=== PATIENT | female | born 1950 ===

== ENCOUNTER 2017-08-02 12:17 | Inpatient (IN) | payer OTHER ==
[2017-07-30 12:43] VITALS: BMI 23.8
[2017-08-02] MEDS ORDERED: Midazolam 2 MG/2 ML VIAL ONE ×3 (13:54→15:47)
[2017-08-02] MEDS ORDERED: Nitroglycerin 50mg in D5W 0 MG/0 ML BOTTLE IV ONE (13:54)
--- NOTE | 2017-08-02 14:03 | CP.PCM.CON ---
<Chuck Salmeron - Last Filed: 08/02/17 16:44> History of Present Illness - History of Present Illness History of Present Illness: Vascular Surgery Consult Note for Dr. Henrry Salmeron D.O. PGY-1 Reason for Consult: Hx of PVD, suspected left foot critical limb ischemia HPI: Patient is a 67 year old female with past medical history that includes DM2 , HTN, HLD, MT, CVA amd systolic CHF with last known EF of 20% in 12/05/16 who presented to [facility] on 07/30/2017 with left foot ulcer and discoloration of her 2nd and 3rd digits. Patient reported problem associated with left lower extremity had been ongoing for the past month with recent progression of her pain and discoloration in the past 5 days. Patient admitted to [facility], Podiatry team was consulted, heparin gtt started, and ABIs/PVR preformed showing no appreciable waveforms to the ankle. Patient was transferred to [facility] for peripheral angiogram and further medical evaluation and treatment. Patient reported feeling pain associated with left lower extremity and discoloration of toes. Reports pain is manageable with current pain regiment. Patient denies headache, chest pain, shortness of breath, fever, chills, nausea , vomiting, abdominal pain, peripheral numbness. PMH: DM2, HTN, HLD, MT, CVA, chronic back pain PSH: catherterization; left foot surgery: partial resection of distal left 1st metatarsal, partial resection of base of proximal phalanx, excision of left tibial sesamoid and debridement of ulcers SocHx: Tobacco: Former, 0.5 PPD for 25 years, ETOH: Denies, ID: Denies FMH: MT - mother Meds: MAR Reviewed All: NKDA Review of Systems - Review of Systems All systems: reviewed and no additional remarkable complaints except (as mentioned in HPI) Past Patient History - Infectious Disease Hx of Infectious Diseases: None - Tetanus Immunizations Tetanus Immunization: Unknown - Past Medical History & Family History Past Medical History?: Yes - Past Social History Smoking Status: Former Smoker Alcohol: None Drugs: Denies - CARDIAC Hx Hypercholesterolemia: Yes Hx Hypertension: Yes - PULMONARY Hx Respiratory Disorders: No - NEUROLOGICAL Hx Neurological Disorder: Yes HX Cerebrovascular Accident: Yes (left sided weakness) - HEENT Hx HEENT Problems: No - ENDOCRINE/METABOLIC Hx Endocrine Disorders: Yes Hx Diabetes Mellitus Type 2: Yes - HEMATOLOGICAL/ONCOLOGICAL Hx Blood Disorders: No - INTEGUMENTARY Hx Dermatological Problems: No - MUSCULOSKELETAL/RHEUMATOLOGICAL Hx Musculoskeletal Disorders: Yes Hx Falls: Yes (fell 6 months ago) Other/Comment: hx of chronic back pain - GASTROINTESTINAL Hx Gastrointestinal Disorders: No - GENITOURINARY/GYNECOLOGICAL Hx Genitourinary Disorders: No - PSYCHIATRIC Hx Psychophysiologic Disorder: No Hx Substance Use: No - SURGICAL HISTORY Hx Coronary Stent: Yes - ANESTHESIA Hx Anesthesia: Yes Hx Anesthesia Reactions: No Meds Allergies/Adverse Reactions: Allergies Allergy/AdvReac Type Severity Reaction Status Date / Time No Known Allergies Allergy Verified 11/28/15 14:21 Physical Exam - Constitutional Appears: Non-toxic, No Acute Distress - Head Exam Head Exam: ATRAUMATIC, NORMAL INSPECTION, NORMOCEPHALIC - Eye Exam Eye Exam: EOMI, PERRL - ENT Exam ENT Exam: Mucous Membranes Moist - Respiratory Exam Respiratory Exam: Clear to Auscultation Bilateral, NORMAL BREATHING PATTERN. absent: Rhonchi, Wheezes - Cardiovascular Exam Cardiovascular Exam: REGULAR RHYTHM, +S1, +S2 - GI/Abdominal Exam GI & Abdominal Exam: Normal Bowel Sounds, Soft. absent: Firm, Guarding, Tenderness - Extremities Exam Extremities exam: Negative for: calf tenderness Additional comments: Left Lower Ext: Dp pulse nonpalpable, PT pulse weakly palpable, poor capillary refill to digits. Toes cool to touch. 2nd and third digits with dark, deep blue hue/discolartion noted distally. Ulceration with bandaging covering ucler measuring 2cm x 2 cm at the medial aspect of the first metaphalangeal joint. Severe hallux valgus noted with crossing over 2nd digit. - Neurological Exam Neurological exam: Alert, Oriented x3 - Psychiatric Exam Psychiatric exam: Normal Affect, Normal Mood - Skin Skin Exam: Dry Assessment & Plan - Assessment and Plan (Free Text) Assessment: 67 year old female with past medical history of DM2, HTN, HLD, MT, CVA, systolic CHF and PVD who is a transfer from [facility] via ambulance for peripheral angiogram of left lower extremity after presenting for left foot ulcer and ischemia of the 2nd and 3rd digits. Plan: 1. Critical Limb ischemia - Left lower extremity with evidence of 2nd and 3rd digits of blue/purple discoloration - Likely secondary to peripheral venous insufficiency - Lower extremity ultrasound showing poor waveform - Heparin gtt continued - Peripheral angiogram of left lower extremity at [facility] - tPA contraindicated due to history of previous hemorrhagic CVA - Heparin gtt, Integrillin gtt, for 48 hours, Brillinta 180 post procedure 2. Systolic CHF - Last known EF of 20% () - Carvedilol 3.125mg BID - Furosemide 20mg BID - Isosorbide mononitrate 30mg - Lisinopril 5mg Daily 3. CAD - ASA, Plavix 4. HLD - Continue with statin dispo: Transfer patient back to [facility] Further recommendations per Dr. Henrry Salmeron PGY-1 - Date & Time Date: 08/02/17 Time: 14:11 <Anil Sales - Last Filed: 08/04/17 23:23> Results - Vital Signs Recent Vital Signs: Last Vital Signs Temp 98.0 F 08/03/17 08:00 Pulse 94 H 08/03/17 11:19 Resp 22 08/03/17 11:19 BP 147/64 08/03/17 11:19 Pulse Ox 100 08/03/17 11:19 - Labs Result Diagrams: 08/03/17 03:15 08/03/17 03:15 Attending/Attestation - Attestation I have personally seen and examined this patient.: Yes I have fully participated in the care of the patient.: Yes I have reviewed all pertinent clinical information: Yes Notes (Text): 08/04/17 23:22 s/p aspiration thromectomy of left sfa stent thrombosis and [employer]AD[employer] poor distal flow secondary to heavy thrombus burden cont IV heparin and IV integrillin x 48 hours vascular surgery consult to evaluate for open thrombectomy vs. BKA DAPT
[2017-08-02] MEDS ORDERED: Iodixanol 320 MG/ML 200 ML BOTTLE IV ONE (14:08)
[2017-08-02] MEDS ORDERED: Eptifibatide 20 mg/10mL Inj IVP ONE ×2 (14:32→16:00)
[2017-08-02] MEDS ORDERED: Eptifibatide 0.75 mg/ml 75 MG/100 ML BOTTLE IV ONE (16:15)
[2017-08-02] MEDS ORDERED: Heparin25000 units/250ml 1/2NS 25,000 UNITS/250 ML BAG IV ONE (16:28)
[2017-08-02] MEDS ORDERED: Eptifibatide 0.75 mg/ml 75 MG/100 ML BOTTLE IV SCH (16:45)
[2017-08-02] MEDS ORDERED: Heparin25000 units/250ml 1/2NS 25,000 UNITS/250 ML BAG IV SCH (17:00)
[2017-08-02] MEDS ORDERED: DOPamine 400mg/250ml D5W 400 MG/250 ML BAG IV ONE (20:00)
--- NOTE | 2017-08-02 20:42 | CP.PCM.CON ---
History of Present Illness - History of Present Illness History of Present Illness: 67 year old female with past medical history of CAD, VT ,CHF, EF of 20% in ,DM2, HTN, Hyperlipidemia,PVD,hemorrhagic CVA transferred to [facility] from [facility] for angiogram..Patient presented to [facility] on 07/30/2017 with left foot ulcer and discoloration of her 2nd and 3rd digits. peripheral angiogram of left lower extremity attempted.Following procedure patient developed hematoma,was oozing and became hypotensive with systolic BP in the 70's.Pressure applied to right groin,Heparin and integrillin discontinued.BP Improved with IV fluids. Review of Systems - Review of Systems Systems not reviewed;Unavailable: Unstable Vital Signs - Constitutional Constitutional: Fatigue. absent: Chills, Excessive Sweating, Fever - EENT Eyes: absent: Change in Vision, Diplopia Ears: absent: Dizziness Nose/Mouth/Throat: absent: Epistaxis, Sore Throat, Neck Pain - Cardiovascular Cardiovascular: absent: Chest Pain, Dyspnea - Respiratory Respiratory: absent: Cough, Dyspnea - Gastrointestinal Gastrointestinal: absent: Abdominal Pain, Nausea, Vomiting - Genitourinary Genitourinary: absent: Difficulty Urinating, Hematuria - Musculoskeletal Musculoskeletal: Back Pain. absent: Stiffness - Integumentary Integumentary: Wounds. absent: Dry Skin - Neurological Neurological: absent: Confusion, Dizziness - Endocrine Endocrine: absent: Excessive Sweating - Hematologic/Lymphatic Hematologic: absent: Easy Bruising Past Patient History - Infectious Disease Hx of Infectious Diseases: None - Tetanus Immunizations Tetanus Immunization: Unknown - Past Medical History & Family History Past Medical History?: Yes - Past Social History Smoking Status: Former Smoker Alcohol: None Drugs: Denies - CARDIAC Hx Hypercholesterolemia: Yes Hx Hypertension: Yes - PULMONARY Hx Respiratory Disorders: No - NEUROLOGICAL Hx Neurological Disorder: Yes HX Cerebrovascular Accident: Yes (left sided weakness) - HEENT Hx HEENT Problems: No - ENDOCRINE/METABOLIC Hx Endocrine Disorders: Yes Hx Diabetes Mellitus Type 2: Yes - HEMATOLOGICAL/ONCOLOGICAL Hx Blood Disorders: No - INTEGUMENTARY Hx Dermatological Problems: No - MUSCULOSKELETAL/RHEUMATOLOGICAL Hx Musculoskeletal Disorders: Yes Hx Falls: Yes (fell 6 months ago) Other/Comment: hx of chronic back pain - GASTROINTESTINAL Hx Gastrointestinal Disorders: No - GENITOURINARY/GYNECOLOGICAL Hx Genitourinary Disorders: No - PSYCHIATRIC Hx Psychophysiologic Disorder: No Hx Substance Use: No - SURGICAL HISTORY Hx Coronary Stent: Yes - ANESTHESIA Hx Anesthesia: Yes Hx Anesthesia Reactions: No Meds Allergies/Adverse Reactions: Allergies Allergy/AdvReac Type Severity Reaction Status Date / Time No Known Allergies Allergy Verified 11/28/15 14:21 - Medications Medications: Current Medications Acetaminophen (Tylenol 325mg Tab) 650 mg PO Q6H PRN PRN Reason: Pain, moderate (4-7) Eptifibatide (Integrilin) 75 mg in 100 mls @ 4.209 mls/hr IV .[id number] CLOVIS PRN Reason: 1 MCG/KG/MIN Stop: 08/04/17 16:45 Sodium Chloride (Sodium Chloride 0.9%) 500 mls @ 100 mls/hr IV .Q5H CL[place] Heparin Sodium/Sodium Chloride (Heparin 01024 Units/250ml 1/2 Normal Saline) 25 ,000 units in 250 mls @ 10.002 mls/hr IV .Q24H CLOVIS; 19.01 UNITS/KG/HR PRN Reason: Protocol Stop: 08/04/17 17:00 Physical Exam - Constitutional Appears: No Acute Distress - Head Exam Head Exam: ATRAUMATIC, NORMAL INSPECTION, NORMOCEPHALIC - Eye Exam Eye Exam: EOMI, Normal appearance, PERRL - ENT Exam ENT Exam: Mucous Membranes Moist, Normal Exam - Neck Exam Neck exam: Positive for: Normal Inspection - Respiratory Exam Respiratory Exam: Clear to Auscultation Bilateral, NORMAL BREATHING PATTERN - Cardiovascular Exam Cardiovascular Exam: REGULAR RHYTHM. absent: JVD - GI/Abdominal Exam GI & Abdominal Exam: Normal Bowel Sounds, Soft. absent: Tenderness - Extremities Exam Extremities exam: Negative for: calf tenderness, pedal edema Additional comments: left foot 2nd and 3rd digits with bluish dicoloration,hallux vulgus - Back Exam Back exam: absent: CVA tenderness (R) - Neurological Exam Neurological exam: Alert, Oriented x3 - Skin Skin Exam: Normal Color Results - Labs Labs: Laboratory Results - last 24 hr 08/02/17 19:52 POC Glucose (mg/dL) 118 H - EKG Data EKG Interpreted by: Myself Rate: Normal - EKG Data EKG comments: Q waves in inferolateral leads Assessment & Plan - Assessment and Plan (Free Text) Assessment: 1.Hypotension following peripheral angiogram-no acute changes on EKG improved with fluids f/u with labs (07/31 H 9.9) 2.CAD/VT,CHF f/u BP and restart meds as tolerated 3.PVD hold plavix and restart once bleeding is controlled 4.DM-insulin coverage 5.Hyperlipidemia on meds
[2017-08-02 21:06] LABS: BASO # 0.1 K/uL (0.0-0.2); BASO % 0.7 % (0.0-2.0); EOS # 0.1 K/uL (0.0-0.7); EOS % 0.8 % (0.0-4.0); HEMOGLOBIN 10.7 g/dL (11.0-16.0); LYMPH # 1.6 K/uL (1.0-4.3); LYMPH % 9.3 % (20.0-40.0); MEAN CORPUSCULAR HEMOGLOBIN 28.9 pg (27.0-31.0); MEAN CORPUSCULAR HGB CONC 33.2 g/dL (33.0-37.0); MEAN PLATELET VOLUME 9.8 fL (7.2-11.7); MONO # 1.3 K/uL (0.0-0.8); MONO % 7.5 % (0.0-10.0); NEUT # 13.8 K/uL (1.8-7.0); NEUT % 81.7 % (50.0-75.0); NRBC % 0.1 % (0.0-2.0); PLATELET COUNT 265 K/uL (130-400); RED CELL DISTRIBUTION WIDTH 12.4 % (11.5-14.5); WHITE BLOOD COUNT 16.9 K/uL (4.8-10.8)
[2017-08-02 21:18] LABS: CALCIUM 8.8 mg/dl (8.6-10.4)
[2017-08-02 21:26] LABS: EOSINOPHIL 1 % (0-4); LYMPHOCYTE 6 % (20-40); MONOCYTE 6 % (0-10); NEUTROPHIL 87 % (50-75); TOTAL CELLS COUNTED 100
[2017-08-02 21:27] LABS: PLATELET ESTIMATE NORMAL (NORMAL)
[2017-08-02 21:28] LABS: HYPOCHROMIC SLIGHT; POLYCHROMIC SLIGHT
[2017-08-02 21:30] LABS: CK-MB 1.65 ng/mL (0.0-3.38); TROPONIN I 0.041 ng/mL (0.00-0.120)
[2017-08-02] MEDS: (Novolin R) Insulin Human Regular 100 units/ml vial SC SCH (21:37)
[2017-08-02 22:16] LABS: INR 1.2; PROTHROMBIN TIME 12.9 SECONDS (9.7-12.2)
[2017-08-02] MEDS ORDERED: Sodium Chloride 0.9% 500 ML IV SCH (22:50)
[2017-08-02] MEDS: Sodium Chloride 0.9% 500 ML IV SCH ×2 (22:55→22:56)
--- NOTE | 2017-08-02 23:13 | CP.PCM.HP ---
Past Patient History - Infectious Disease Hx of Infectious Diseases: None - Tetanus Immunizations Tetanus Immunization: Unknown - Past Medical History & Family History Past Medical History?: Yes - Past Social History Smoking Status: Former Smoker Alcohol: None Drugs: Denies - CARDIAC Hx Hypercholesterolemia: Yes Hx Hypertension: Yes - PULMONARY Hx Respiratory Disorders: No - NEUROLOGICAL Hx Neurological Disorder: Yes HX Cerebrovascular Accident: Yes (left sided weakness) - HEENT Hx HEENT Problems: No - ENDOCRINE/METABOLIC Hx Endocrine Disorders: Yes Hx Diabetes Mellitus Type 2: Yes - HEMATOLOGICAL/ONCOLOGICAL Hx Blood Disorders: No - INTEGUMENTARY Hx Dermatological Problems: No - MUSCULOSKELETAL/RHEUMATOLOGICAL Hx Musculoskeletal Disorders: Yes Hx Falls: Yes (fell 6 months ago) Other/Comment: hx of chronic back pain - GASTROINTESTINAL Hx Gastrointestinal Disorders: No - GENITOURINARY/GYNECOLOGICAL Hx Genitourinary Disorders: No - PSYCHIATRIC Hx Psychophysiologic Disorder: No Hx Substance Use: No - SURGICAL HISTORY Hx Coronary Stent: Yes - ANESTHESIA Hx Anesthesia: Yes Hx Anesthesia Reactions: No Meds Allergies/Adverse Reactions: Allergies Allergy/AdvReac Type Severity Reaction Status Date / Time No Known Allergies Allergy Verified 11/28/15 14:21 Results - Vital Signs Recent Vital Signs: Last Vital Signs Temp Pulse 106 H 08/02/17 22:50 Resp 16 08/02/17 22:50 BP 109/56 L 08/02/17 22:20 Pulse Ox 100 08/02/17 22:50 - Labs Result Diagrams: 08/02/17 21:02 08/02/17 21:02 Labs: Laboratory Results - last 24 hr 08/02/17 08/02/17 08/02/17 19:52 21:02 21:02 WBC 16.9 H D RBC 3.70 L Hgb 10.7 L Hct 32.2 L MCV 87.0 MCH 28.9 MCHC 33.2 RDW 12.4 Plt Count 265 MPV 9.8 Neut % (Auto) 81.7 H Lymph % (Auto) 9.3 L Ballard % (Auto) 7.5 Eos % (Auto) 0.8 Baso % (Auto) 0.7 Neut # (Auto) 13.8 H Lymph # (Auto) 1.6 Ballard # (Auto) 1.3 H Eos # (Auto) 0.1 Baso # (Auto) 0.1 Neutrophils % (Manual) 87 H Lymphocytes % (Manual) 6 L Monocytes % (Manual) 6 Eosinophils % (Manual) 1 Platelet Estimate Normal Polychromasia Slight Hypochromasia (manual) Slight PT INR APTT Sodium 137 Potassium 5.0 Chloride 106 Carbon Dioxide 18 L Anion Gap 19 BUN 27 H Creatinine 1.2 Est GFR ( Amer) 54 Est GFR (Non-Af Amer) 45 POC Glucose (mg/dL) 118 H Random Glucose 112 H Calcium 8.8 Phosphorus 4.6 H Magnesium 1.7 Total Creatine Kinase 61 CK-MB (Mass) 1.65 Troponin I 0.0410 08/02/17 08/02/17 21:37 21:41 WBC RBC Hgb Hct MCV MCH MCHC RDW Plt Count MPV Neut % (Auto) Lymph % (Auto) Ballard % (Auto) Eos % (Auto) Baso % (Auto) Neut # (Auto) Lymph # (Auto) Ballard # (Auto) Eos # (Auto) Baso # (Auto) Neutrophils % (Manual) Lymphocytes % (Manual) Monocytes % (Manual) Eosinophils % (Manual) Platelet Estimate Polychromasia Hypochromasia (manual) PT 12.9 H INR 1.2 APTT 276 H* Sodium Potassium Chloride Carbon Dioxide Anion Gap BUN Creatinine Est GFR ( Amer) Est GFR (Non-Af Amer) POC Glucose (mg/dL) 131 H Random Glucose Calcium Phosphorus Magnesium Total Creatine Kinase CK-MB (Mass) Troponin I
--- NOTE | 2017-08-02 23:13 | PCM.RRT ---
[employer] Nurses Assessment - Situation Date: 08/02/17 Time [employer]EM[employer] was called: 19:47 [employer]EM[employer] Responder Arrival Time:: 19:50 [employer]EM[employer] Location:: Customer Servicer [employer] Reason for Call: Hypotension [employer]EM[employer] Called By: RN - Constitutional Appears: In Acute Distress - Head Head Exam: ATRAUMATIC, NORMAL INSPECTION - Eyes Eye Exam: EOMI, Normal appearance - Respiratory Exam Respiratory Exam: Clear to Ausculation Bilateral, NORMAL BREATHING PATTERN - Cardiovascular Exam Cardiovascular Exam: REGULAR RHYTHM, +S1, +S2 - GI/Abdominal Exam GI & Abdominal Exam: Soft, Normal Bowel Sounds. absent: Tenderness - Neurological Exam Neurological Exam: Alert, Awake, Oriented x3 - Extremities Exam Extremities Exam: Tenderness (s/p cath; right femoral tenderness ) Plan - Assessment of Findings&Treatment Plan [employer]EM[employer] was called by RN for hypotension. RN states the patient had her cath procedure at around 4pm with Dr. Sales, Patient was bleeding from the cath site and she states she held pressure for an hour and it continued to bleed. On arrival patient's blood pressure was 70/41; HR 92; O2 95% 2L NC; blood sugar 118. NS bolus was given to the patient. Repeat blood pressure was 96/64; HR 91; O2 100% 2L NC. Patient was then response, alert, oriented x3. Repeat cbc, cmp, INR and PTT was ordered. Dr. Sales was contacted. Patient was admitted to ICU.
[2017-08-03] MEDS ORDERED: Oxycodone/Acetaminophen 5/325 mg Tab PO STA (02:20)
[2017-08-03 03:22] LABS: HEMOGLOBIN 10.1 g/dL (11.0-16.0); MEAN CELL VOLUME 88.8 fL (81.0-99.0); MEAN CORPUSCULAR HEMOGLOBIN 29.1 pg (27.0-31.0); MEAN CORPUSCULAR HGB CONC 32.8 g/dL (33.0-37.0); MEAN PLATELET VOLUME 9.9 fL (7.2-11.7); RBC 3.47 Mil/uL (3.80-5.20); RED CELL DISTRIBUTION WIDTH 13.1 % (11.5-14.5); WHITE BLOOD COUNT 16.9 K/uL (4.8-10.8)
[2017-08-03 03:27] LABS: PROTHROMBIN TIME 10.7 SECONDS (9.7-12.2)
--- NOTE | 2017-08-03 03:27 | CARDCATH ---
PROCEDURE DATE: 08/02/2017 INDICATION: Misti Marino is a 67-year-old female with past medical history significant for hypertension, diabetes, hyperlipidemia, triple vessel CAD, CHF, ischemic cardiomyopathy, peripheral vascular occlusive disease who presented to [facility] with critical limb ischemia and gangrene of the second and third digits. She was initially on IV heparin drip, underwent FADIA that showed severe critical limb ischemia. Therefore was brought to [facility] for further evaluation and treatment. PROCEDURE PERFORMED: Distal abdominal aortogram with bilateral iliac runoff, selective bilateral iliofemoral angiogram with runoff, atherectomy, AngioJet atherectomy, left distal SFA, popliteal, and posterior tibial artery with distal small vessel AngioJet atherectomy device. Additional balloon angioplasty of SFA, ACCOUNT TECHNICIAN, and PT plantar arches with 2-0, 3-0, and 4-0 balloons, significant clot in thrombus seen inside the stent and in the whole infragenicular vessels, poor distal circulation. TECHNIQUES OF PROCEDURE: After obtaining informed consent, the patient was brought to the cardiac catheterization suite in post-absorptive and non-sedated state. The patient was prepped and draped in the usual sterile fashion. A 2% lidocaine was used for infiltration of anesthesia using modified Seldinger technique. A 6-Irish sheath was introduced into the right femoral artery. Right iliofemoral angiogram with runoff was performed. Digital subtraction angiographic views of below the knee and right foot profile was obtained. Angiographic findings of right lower extremity, right common iliac patent, external iliac patient, SFA distal 80% stenosis, clot seen at trifurcation of the AP and peroneal, posterior tibial slow flow noted. Left lower extremity, left common iliac, external iliac patent. SFA patent, profunda femoris patent. SFA distal stent 100% subacute chronic thrombus with collateral flow into the PT noted. One-vessel runoff below the knee via the collateral circulation with significant part in thrombus seen. Intervention, after viewing the angiographic findings, we were able to negotiate the wire into the posterior tibial artery up to the ankle, initially ACCOUNT TECHNICIAN which we were able to restore some flow at this time, anterior thrombectomy was done. We could not infuse TPA with EKOS catheter secondary to recent history of hemorrhagic bleed which was documented on 04/12/2017. She was admitted to the [facility]. Therefore, we tried to treat the patient conservatively with AngioJet thrombectomy and balloon angioplasty with poor vessel flow. IMPRESSION: Attempted revascularization of significantly chronic and acute thrombotic occlusion of the left SFA popliteal lesion with unable to recannulate the distal flow, poor circulation secondary to severe thrombus burden. RECOMMENDATIONS: Keep the patient on IV heparin and IV Integrilin for 48 hours. Keep the patient on antiplatelet and anticoagulation. The patient is high risk for having below the knee amputation. The patient can be transferred back to [facility] in 3 hours in ICU and monitored closely. Anil Sales MD HARPREET
[2017-08-03 03:48] LABS: TROPONIN I 0.054 ng/mL (0.00-0.120)
[2017-08-03 03:54] LABS: ALB/GLOB RATIO 0.9 (1.0-2.1); ALBUMIN 3.5 g/dL (3.5-5.0); CALCIUM 9.2 mg/dl (8.6-10.4)
[2017-08-03 08:45] VITALS: TEMP 98
[2017-08-03] MEDS: (Novolin R) Insulin Human Regular 100 units/ml vial SC SCH ×2 (08:59→11:23)
[2017-08-03] MEDS ORDERED: Heparin25000 units/250ml 1/2NS 25,000 UNITS/250 ML BAG IV PRN (09:16)
[2017-08-03] MEDS ORDERED: Pantoprazole 40 mg EC Tab PO SCH (10:00)
[2017-08-03 11:25] VITALS: BP 147/64; PULSE 94; RESP 22; O2SAT 100
--- NOTE | 2017-08-03 12:15 | CP.PCM.CON ---
History of Present Illness - History of Present Illness History of Present Illness: Podiatry consult note for Dr. Zabala: 67 y/o female with pmhx of DM2, HTN, HLD, CT, CVA, chronic back pain, seen at bedside in the ICU for left foot ischemic 1st, 2nd, and 3rd digits. Patient was sent to [facility] for angio yesterday by Dr. Sales. Patient is in NAD and AAOx3. Patient denies any pain in her foot at the time of visit. Patient denies any other pedal complaints at this time. Patient states that [facility]. Denies n/f/v/d/c/sob. Review of Systems - Constitutional Constitutional: As Per HPI Past Patient History - Infectious Disease Hx of Infectious Diseases: None - Tetanus Immunizations Tetanus Immunization: Unknown - Past Medical History & Family History Past Medical History?: Yes - Past Social History Smoking Status: Former Smoker Alcohol: None Drugs: Denies - CARDIAC Hx Hypercholesterolemia: Yes Hx Hypertension: Yes - PULMONARY Hx Respiratory Disorders: No - NEUROLOGICAL Hx Neurological Disorder: Yes HX Cerebrovascular Accident: Yes (left sided weakness) - HEENT Hx HEENT Problems: No - ENDOCRINE/METABOLIC Hx Endocrine Disorders: Yes Hx Diabetes Mellitus Type 2: Yes - HEMATOLOGICAL/ONCOLOGICAL Hx Blood Disorders: No - INTEGUMENTARY Hx Dermatological Problems: No - MUSCULOSKELETAL/RHEUMATOLOGICAL Hx Musculoskeletal Disorders: Yes Hx Falls: Yes (fell 6 months ago) Other/Comment: hx of chronic back pain - GASTROINTESTINAL Hx Gastrointestinal Disorders: No - GENITOURINARY/GYNECOLOGICAL Hx Genitourinary Disorders: No - PSYCHIATRIC Hx Psychophysiologic Disorder: No Hx Substance Use: No - SURGICAL HISTORY Hx Coronary Stent: Yes - ANESTHESIA Hx Anesthesia: Yes Hx Anesthesia Reactions: No Meds Allergies/Adverse Reactions: Allergies Allergy/AdvReac Type Severity Reaction Status Date / Time No Known Allergies Allergy Verified 11/28/15 14:21 - Medications Medications: Current Medications Acetaminophen (Tylenol 325mg Tab) 650 mg PO Q6H PRN PRN Reason: Pain, moderate (4-7) Last Admin: 08/03/17 11:03 Dose: 650 mg Heparin Sodium/Sodium Chloride (Heparin 55637 Units/250ml 1/2 Normal Saline) 25 ,000 units in 250 mls @ 7.366 mls/hr IV .Q24H PRN; Protocol; 14 UNIT/KG/HR PRN Reason: PROTOCOL Last Admin: 08/03/17 10:35 Dose: 14 unit/kg/hr, 7.366 mls/hr Insulin Human Regular (Novolin R) 0 unit SC ACHS [facility] PRN Reason: Protocol Last Admin: 08/03/17 11:23 Dose: Not Given Pantoprazole Sodium (Protonix Ec Tab) 40 mg PO DAILY [facility] Last Admin: 08/03/17 10:14 Dose: 40 mg Physical Exam - Constitutional Appears: Well, Non-toxic, No Acute Distress - Extremities Exam Additional comments: LLE focused physical exam: Vasc: DP pulse nonpalpable. PT pulse weakly palpable, CFT <3 seconds to digits. TG cool to cool. Edema noted to medial aspect of left forefoot Neuro: Gross sensation intact, protective sensation diminished Derm: Ulceration measuring 2.5 cm x 2.5 cm x . 4 cm with 100% fibrous wound base at the medial aspect of the 1st MPJ, severe hallux valgus deformity noted and crossing over 2nd digit. Ulceration has no drainage, no purulence, no odor, periwound slightly erythema, no increase warmth, no fluctance, streaking noted vs erthema noted to dorsum of foot. Superficial ulcerations noted to the 2nd digit secondary to pressure from 1st hallux. Dark, deep blue-sue purple discoloration noted to the 2nd digits, blue discoloratoin noted to the 3rd digit. The 2nd digit is darker compared to yesterday. Slight macerations to interspaces noted with ulcerations noted to 2nd, 3rd and 4th interspace. Ortho: pain to palpation of medial 1st met head, sub met 1-3, entire digits 1-3 of left foot, patient has generalize pain to the LE extremity - Neurological Exam Neurological exam: Alert, Oriented x3 Results - Vital Signs Recent Vital Signs: Last Vital Signs Temp 98.0 F 08/03/17 08:00 Pulse 94 H 08/03/17 11:19 Resp 22 08/03/17 11:19 BP 147/64 08/03/17 11:19 Pulse Ox 100 08/03/17 11:19 - Labs Result Diagrams: 08/03/17 03:15 08/03/17 03:15 Labs: Laboratory Results - last 24 hr 08/02/17 08/02/17 08/02/17 19:52 21:02 21:02 WBC 16.9 H D RBC 3.70 L Hgb 10.7 L Hct 32.2 L MCV 87.0 MCH 28.9 MCHC 33.2 RDW 12.4 Plt Count 265 MPV 9.8 Neut % (Auto) 81.7 H Lymph % (Auto) 9.3 L Glasscock % (Auto) 7.5 Eos % (Auto) 0.8 Baso % (Auto) 0.7 Neut # (Auto) 13.8 H Lymph # (Auto) 1.6 Glasscock # (Auto) 1.3 H Eos # (Auto) 0.1 Baso # (Auto) 0.1 Neutrophils % (Manual) 87 H Lymphocytes % (Manual) 6 L Monocytes % (Manual) 6 Eosinophils % (Manual) 1 Platelet Estimate Normal Polychromasia Slight Hypochromasia (manual) Slight PT INR APTT Sodium 137 Potassium 5.0 Chloride 106 Carbon Dioxide 18 L Anion Gap 19 BUN 27 H Creatinine 1.2 Est GFR ( Amer) 54 Est GFR (Non-Af Amer) 45 POC Glucose (mg/dL) 118 H Random Glucose 112 H Calcium 8.8 Phosphorus 4.6 H Magnesium 1.7 Total Bilirubin AST ALT Alkaline Phosphatase Total Creatine Kinase 61 CK-MB (Mass) 1.65 Troponin I 0.0410 Total Protein Albumin Globulin Albumin/Globulin Ratio 08/02/17 08/02/17 08/03/17 21:37 21:41 03:15 WBC RBC Hgb Hct MCV MCH MCHC RDW Plt Count MPV Neut % (Auto) Lymph % (Auto) Glasscock % (Auto) Eos % (Auto) Baso % (Auto) Neut # (Auto) Lymph # (Auto) Glasscock # (Auto) Eos # (Auto) Baso # (Auto) Neutrophils % (Manual) Lymphocytes % (Manual) Monocytes % (Manual) Eosinophils % (Manual) Platelet Estimate Polychromasia Hypochromasia (manual) PT 12.9 H 10.7 INR 1.2 1.0 APTT 276 H* 31 D Sodium Potassium Chloride Carbon Dioxide Anion Gap BUN Creatinine Est GFR ( Amer) Est GFR (Non-Af Amer) POC Glucose (mg/dL) 131 H Random Glucose Calcium Phosphorus Magnesium Total Bilirubin AST ALT Alkaline Phosphatase Total Creatine Kinase CK-MB (Mass) Troponin I Total Protein Albumin Globulin Albumin/Globulin Ratio 08/03/17 08/03/17 08/03/17 03:15 03:15 07:34 WBC 16.9 H RBC 3.47 L Hgb 10.1 L Hct 30.8 L MCV 88.8 MCH 29.1 MCHC 32.8 L RDW 13.1 Plt Count 240 MPV 9.9 Neut % (Auto) Lymph % (Auto) Glasscock % (Auto) Eos % (Auto) Baso % (Auto) Neut # (Auto) Lymph # (Auto) Glasscock # (Auto) Eos # (Auto) Baso # (Auto) Neutrophils % (Manual) Lymphocytes % (Manual) Monocytes % (Manual) Eosinophils % (Manual) Platelet Estimate Polychromasia Hypochromasia (manual) PT INR APTT Sodium 139 Potassium 5.5 H Chloride 104 Carbon Dioxide 14 L Anion Gap 27 H BUN 33 H Creatinine 1.5 H Est GFR ( Amer) 42 Est GFR (Non-Af Amer) 35 POC Glucose (mg/dL) 127 H Random Glucose 148 H Calcium 9.2 Phosphorus 6.0 H Magnesium 1.9 Total Bilirubin 0.6 AST 20 ALT 17 Alkaline Phosphatase 94 Total Creatine Kinase CK-MB (Mass) Troponin I 0.0540 Total Protein 7.2 Albumin 3.5 Globulin 3.7 Albumin/Globulin Ratio 0.9 L 08/03/17 11:14 WBC RBC Hgb Hct MCV MCH MCHC RDW Plt Count MPV Neut % (Auto) Lymph % (Auto) Glasscock % (Auto) Eos % (Auto) Baso % (Auto) Neut # (Auto) Lymph # (Auto) Glasscock # (Auto) Eos # (Auto) Baso # (Auto) Neutrophils % (Manual) Lymphocytes % (Manual) Monocytes % (Manual) Eosinophils % (Manual) Platelet Estimate Polychromasia Hypochromasia (manual) PT INR APTT Sodium Potassium Chloride Carbon Dioxide Anion Gap BUN Creatinine Est GFR ( Amer) Est GFR (Non-Af Amer) POC Glucose (mg/dL) 197 H Random Glucose Calcium Phosphorus Magnesium Total Bilirubin AST ALT Alkaline Phosphatase Total Creatine Kinase CK-MB (Mass) Troponin I Total Protein Albumin Globulin Albumin/Globulin Ratio Assessment & Plan - Assessment and Plan (Free Text) Assessment: 67 y.o female with PMHx of DM2, HTN, HLD, CT, CVA, chronic back pain seen and evaluated left foot non healing ulcer and ischemic 1st 2nd and 3rd digits secondary to DM and PVD Plan: patient evaluated and chart reviewed discussed in detail with attending Dr. Zabala labs and vitals reviewd; wbc 16.9 dressed left foot with betadine, DSD patient [facility]ry will continue care cont. IV abx as per ID will likely need surgery for gangrenous digits left foot wound cx: cornyebacterium species podiatry will continue to follow while patient remains in house
== END 2017-08-03 18:53 | disposition short-term general hospital (02) | DRG 271 ==
LOC: C.CATHLAB 12:17 → C.9I 20:34
PROVIDERS: ADMIT Internal Medicine Interventional Cardiology; ATTEND Internal Medicine Interventional Cardiology
PROC: 04CL3ZZ Extirpation of Matter from Left Femoral Artery, Percutaneous Approach (ICD-10-PCS; principal; 2017-08-02)
PROC: 047L3ZZ Dilation of Left Femoral Artery, Percutaneous Approach (ICD-10-PCS; 2017-08-02)
PROC: 047S3ZZ Dilation of Left Posterior Tibial Artery, Percutaneous Approach (ICD-10-PCS; 2017-08-02)
PROC: 04CN3ZZ Extirpation of Matter from Left Popliteal Artery, Percutaneous Approach (ICD-10-PCS; 2017-08-02)
PROC: 04CS3ZZ Extirpation of Matter from Left Posterior Tibial Artery, Percutaneous Approach (ICD-10-PCS; 2017-08-02)
DX: E11.52 Type 2 diabetes mellitus with diabetic peripheral angiopathy with gangrene (principal); E11.621 Type 2 diabetes mellitus with foot ulcer; I70.262 Atherosclerosis of native arteries of extremities with gangrene, left leg; I11.0 Hypertensive heart disease with heart failure; I50.22 Chronic systolic (congestive) heart failure; I69.354 Hemiplegia and hemiparesis following cerebral infarction affecting left non-dominant side; I25.10 Atherosclerotic heart disease of native coronary artery without angina pectoris; I25.5 Ischemic cardiomyopathy; I70.202 Unspecified atherosclerosis of native arteries of extremities, left leg; L97.529 Non-pressure chronic ulcer of other part of left foot with unspecified severity; E78.5 Hyperlipidemia, unspecified; E78.00 Pure hypercholesterolemia, unspecified; Z95.5 Presence of coronary angioplasty implant and graft; Z87.891 Personal history of nicotine dependence; Z79.4 Long term (current) use of insulin

== ENCOUNTER 2018-01-17 12:33 | Day surgery (SDC) | payer OTHER ==
[2017-12-30 00:05] VITALS: BMI 20.1
[2018-01-17] MEDS ORDERED: Eptifibatide 20 mg/10mL Inj IVP ONE (21:30)
[2018-01-17] MEDS ORDERED: Midazolam 2 MG/2 ML VIAL ONE (21:38)
--- NOTE | 2018-01-18 21:50 | VAS ---
DATE: 01/17/2018 INDICATION: Misti Marino is a 67-year-old female who was admitted to [facility] with gangrene of the toe. She underwent a CT which is showing severe peripheral vascular disease. 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 She had diagnostic angiogram last week, which showed high-grade ostial SFA, distal SFA popliteal and 100% occluded anterior tibial artery with reconstituted flow via the [employer]. PROCEDURE PERFORMED: Distal abdominal aortogram with right lower extremity angiogram and run off. [employer] of SFA, ostial SFA with a 6 x 40 drug-coated balloon lesion under direction from 60% or 0% BRAEDEN 3 flow. Endarterectomy with hollow medium device, balloon angioplasty with drug-coated balloon with 4 x 120 of the distal SFA popliteal lesion under direction from 90% or 0% BRAEDEN 3 flow. [employer] atherectomy of the anterior tibial artery, use of 1.25 CSI atherectomy device. Regeneration of 100% or 0% BRAEDEN 3 flow. IMPRESSION: Successful revascularization of right ostial superficial femoral artery, distal superficial femoral artery, popliteal and occluded anterior tibial artery with lesion regeneration of 100% or 0% improvement and BRAEDEN [address] up to the level of the foot. RECOMMENDATIONS: The patient will be kept on dual antiplatelet therapy. The patient can be transferred back to [place] in three to six hours time. Anil Sales MD
== END 2018-01-18 00:27 | disposition short-term general hospital (02) ==
LOC: C.SPRAD 12:33
PROVIDERS: ATTEND Internal Medicine Interventional Cardiology
DX: I70.201 Unspecified atherosclerosis of native arteries of extremities, right leg (principal)
CPT/HCPCS: 36140; 36245; 37225; 37228; 37233; 75710; 76937; 82948; 99152; 99153; C1714; C1725; C1760; C1766; C1769; C1884; C1887; C1893; J0360; J1327; J1644; J2250; J2270; J3010